=== PATIENT | male | born 1945 | race Caucasian/White ===

== ENCOUNTER 2020-11-04 10:00 | Emergency (ER) | payer OTHER ==
[2020-11-04 10:36] VITALS: BP 170/87; PULSE 63; TEMP 98.2; BMI 21.9
== END 2020-11-04 12:25 | disposition home or self-care (01) ==
LOC: JER 10:00
DX: S00.83XA Contusion of other part of head, initial encounter (principal)
CPT/HCPCS: 70450-TC; 72125-TC; 99284-25